=== PATIENT | male | born 1980 | race Two or more races ===

== ENCOUNTER 2021-03-21 17:49 | Emergency (ER) | payer SELFPAY ==
[~2021-03-21] VITALS: Ht 160 cm; Wt 58.0 kg
--- NOTE | 2021-03-21 18:11 | NUR ---
EKG COMPLETED IN TRIAGE
[2021-03-21 19:46] LABS: RAPID INFLUENZA A Negative (Negative); RAPID INFLUENZA B Negative (Negative)
--- NOTE | 2021-03-21 20:38 | NUR ---
PT WALKED BACK TO ROOM AT THIS TIME. 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 PT CAME INTO THE ED TODAY WITH CLOUD CONSULTANT DIZZINESS, AND N/V. DENIES DIARRHEA. STATES THIS STARTED AFTER HE "ATE LATVIAN FOOD THIS MORNING, LIKE RAW FISH AND RICE" SINCE THEN PT HAS THROWN UP 5 TIMES AND HAS UPPER QUADRANT ABDOMINAL PAIN. PT REPORTS A TINY BIT OF RED BLOOD IN HIS EMESIS EPISODES. PT PLACED ON SPO2/BP MONITORING AT THIS TIME. WCTM.
[2021-03-21 21:42] VITALS: BP 136/80
--- NOTE | 2021-03-21 21:43 | NUR ---
Patient/Caregiver given discharge instructions and they have confirmed that they understand the instructions. Patient ambulatory with steady gait. NAD, all questions answered appropriately, denies additional needs at this time. No personal belongings left in room after discharge.
== END 2021-03-21 21:44 | disposition home or self-care (01) ==
LOC: ED 21:09
DX: U07.1 COVID-19 (principal); J06.9 Acute upper respiratory infection, unspecified; R07.9 Chest pain, unspecified; K52.9 Noninfective gastroenteritis and colitis, unspecified; B34.9 Viral infection, unspecified; R94.31 Abnormal electrocardiogram [ECG] [EKG]
CPT/HCPCS: 71045; 87400; 93005; 99285; U0003; U0005